=== PATIENT | male | born 1950 | race Caucasian/White ===

== ENCOUNTER 2018-08-04 07:28 | Emergency (ER) | payer OTHER ==
[~2018-08-04] VITALS: Ht 180.3 cm; Wt 83.9 kg
[~2018-08-04 07:28] MED LIST: AMBIEN PAK10 MG PO; AMBIEN10 MG PO; ASA325 MG PO; CATAFLAM50 MG PO; CRESTOR40 MG PO; ECOTRIN81 MG PO; LIPITOR80 MG PO; LOTRISONE CREAM45 GM TP; LOZOL PO; LOZOL2.5 MG PO; MAXIPIME; NORVASC5 MG PO; OMEGA-3 FISH OI1 CAP PO; PEPCID20 MG; PLAVIX75 MG PO; PREVACID30 MG PO; QUESTRAN LIGH4 G/PKT PO; REGLAN5 MG/5 ML PO; RELAFEN500 MG PO; ULTRAM50 MG PO; VASOTEC20 MG PO; VASOTEC5 MG PO; ZANTAC150 M3 PO; ZETIA10 MG PO
== END 2018-08-04 10:37 | disposition home or self-care (01) ==
LOC: ER 07:28
DX: R05 Cough (principal)

== ENCOUNTER 2018-08-04 11:17 | Outpatient (CLI) | payer OTHER | END 2018-08-04 11:23 | disposition home or self-care (01) | LOC: RX STUDY 11:17 | DX: R13.19 Other dysphagia (principal) ==

== ENCOUNTER 2021-02-01 07:15 | Outpatient (CLI) | payer OTHER | END 2021-02-01 07:19 | disposition home or self-care (01) | LOC: NUCLEAR 07:15 | PROVIDERS: ATTEND Internal Medicine Cardiovascular Disease | DX: I50.1 Left ventricular failure, unspecified (principal) | CPT/HCPCS: 78452; 93017; A9500; J0153 ==

== ENCOUNTER 2021-09-11 08:35 | Outpatient (CLI) | payer OTHER | END 2021-09-11 08:41 | disposition home or self-care (01) | LOC: NUCLEAR 08:35 | PROVIDERS: ATTEND Internal Medicine Cardiovascular Disease | DX: I70.203 Unspecified atherosclerosis of native arteries of extremities, bilateral legs (principal) ==

== ENCOUNTER 2021-09-12 07:59 | Outpatient (CLI) | payer OTHER | END 2021-09-12 08:09 | disposition home or self-care (01) | LOC: NUCLEAR 07:59 | PROVIDERS: ATTEND Internal Medicine Cardiovascular Disease | DX: I25.10 Atherosclerotic heart disease of native coronary artery without angina pectoris (principal) ==

== ENCOUNTER → 2022-07-09 08:00 | Outpatient (CLI) | payer OTHER ==
[~2022-07-09] VITALS: Ht 180.3 cm; Wt 81.6 kg
[~2022-07-09 08:00] MED LIST changes: +CELEBREX200MG PO
== END | disposition home or self-care (01) ==
LOC: LAB 08:00 → SURG 07-15 07:30 → EDSTATUS 07-15 07:30 → SURG 07-15 10:00
PROVIDERS: ATTEND Orthopaedic Surgery
DX: Z01.810 Encounter for preprocedural cardiovascular examination (principal); Z01.811 Encounter for preprocedural respiratory examination; Z01.812 Encounter for preprocedural laboratory examination; M16.12 Unilateral primary osteoarthritis, left hip

== ENCOUNTER 2022-07-25 07:02 | Outpatient (CLI) | payer OTHER | END 2022-07-25 07:03 | disposition home or self-care (01) | LOC: NUCLEAR 07:02 | PROVIDERS: ATTEND Internal Medicine | DX: I25.9 Chronic ischemic heart disease, unspecified (principal) | CPT/HCPCS: 78452; 93017; A9500; J0153 ==

== ENCOUNTER 2023-04-15 07:53 | Outpatient (CLI) | payer OTHER | END 2023-04-15 07:55 | disposition home or self-care (01) | LOC: NUCLEAR 07:53 | PROVIDERS: ATTEND Psychiatry & Neurology Clinical Neurophysiology | DX: I73.9 Peripheral vascular disease, unspecified (principal) ==

== ENCOUNTER 2023-07-03 09:59 | Outpatient (CLI) | payer OTHER | END 2023-07-03 10:12 | disposition home or self-care (01) | LOC: RAD 09:59 | PROVIDERS: ATTEND Orthopaedic Surgery | DX: M16.12 Unilateral primary osteoarthritis, left hip (principal) ==

== ENCOUNTER 2024-02-14 06:26 | Emergency (ER) | payer OTHER ==
[~2024-02-14] VITALS: Ht 180.3 cm; Wt 78.5 kg
[2024-02-14] MEDS ORDERED: KETOROLAC TROMETHAMINE 30 MG VIAL IV STA (07:04)
[2024-02-14 07:56] LABS: HEMATOCRIT 39.3 % (39.0-48.0); HEMOGLOBIN 13.6 g/dL (13-16.00); MEAN CELL VOLUME 90.5 fL (80.0-100.00); MEAN CORPUSCULAR HEMOGLOBIN 31.2 pg (27.00-32.0); MEAN CORPUSCULAR HGB CONC 34.5 g/dl (32.0-36.0); PLATELET COUNT 192 K/uL (150-450); RED BLOOD COUNT 4.35 M/uL (4.00-6.00); RED CELL DISTRIBUTION WIDTH 14.8 % (11.5-14.5)
[2024-02-14 08:17] LABS: URINE APPEARANCE Clear; URINE BILIRRUBIN Negative (NEGATIVE); URINE BLOOD Negative; URINE COLOR Yellow; URINE GLUCOSE Negative (NEGATIVE); URINE KETONE Negative (NEGATIVE); URINE LEUKOCYTE Trace; URINE NITRATE Negative; URINE PROTEIN Negative (NEGATIVE); URINE UROBILINOGEN 0.2 E.U./dl
[2024-02-14 08:33] LABS: URINE BACTERIA 23.9 uL (0.0-1933); URINE RBC 4.8 uL (0.0-20.8); URINE WBC 25.1 uL (0.0-23.2)
[2024-02-14 08:59] LABS: URINE EPITHELIAL CELLS 0.6 uL (0.0-38.8)
[2024-02-14 09:25] LABS: ALBUMIN 3.4 gm/dL (3.4-5.0); BILIRUBIN TOTAL 0.38 mg/dL (0.3-1.2); CALCIUM 8.5 mg/dL (8.5-10.1); CREATININE SERUM 1.02 mg/dL (0.70-1.30); GFR 71.39; GLOBULINA 3.4 G/DL (2.4-3.5); POTASSIUM 3.4 mEq/L (3.5-5.1); TOTAL PROTEIN 6.8 gm/dL (6.4-8.2)
[2024-02-14] MEDS ORDERED: BACTRIM DS TAB1 EACH PO (10:08)
[2024-02-14] MEDS ORDERED: PEPCID AC20 MG PO (10:08)
== END 2024-02-14 10:27 | disposition home or self-care (01) ==
LOC: ER 06:27
DX: N13.9 Obstructive and reflux uropathy, unspecified (principal); N39.0 Urinary tract infection, site not specified
CPT/HCPCS: 36415; 51702; 96365; 99282; J1885

== ENCOUNTER 2024-06-28 07:05 | Outpatient (CLI) | payer OTHER ==
[~2024-06-28 07:05] MED LIST changes: +BACTRIM DS TAB1 EACH PO; +PEPCID AC20 MG PO
== END 2024-06-28 07:06 | disposition home or self-care (01) ==
LOC: NUCLEAR 07:05
PROVIDERS: ATTEND Internal Medicine
DX: I20.9 Angina pectoris, unspecified (principal)
CPT/HCPCS: 78452; 93017; A9500